=== PATIENT | male | born 1945 | race Caucasian/White ===

== ENCOUNTER → 2017-08-10 | Outpatient (CLI) | payer MEDICARE, OTHER | END | disposition home or self-care (01) | LOC: HKI 14:36 | DX: M16.11 Unilateral primary osteoarthritis, right hip (principal) | CPT/HCPCS: 73502 ==

== ENCOUNTER → 2017-08-20 | Outpatient (CLI) | payer MEDICARE, OTHER | END | disposition home or self-care (01) | LOC: HKI 14:07 | DX: M16.11 Unilateral primary osteoarthritis, right hip (principal) ==

== ENCOUNTER → 2017-09-13 | Outpatient (CLI) | payer MEDICARE, OTHER | END | disposition home or self-care (01) | LOC: HKI 13:25 | DX: Z01.818 Encounter for other preprocedural examination (principal) | CPT/HCPCS: 87081 ==

== ENCOUNTER 2017-09-23 08:49 | Inpatient (IN) | payer MEDICARE, OTHER ==
[2017-09-23] MEDS: LANSOPRAZOLE 30 MG CAP PO (06:30)
[2017-09-23] MEDS: ACETAMINOPHEN 1000MG/100ML IV 100 ML IVPB (06:30)
[2017-09-23] MEDS: ONDANSETRON 4 MG INJ IV ×4 (06:30→23:30)
[2017-09-23] MEDS: DEXAMETHASONE 4 MG/ML 1 ML INJ IV (06:30)
[~2017-09-23 08:49] MED LIST: EPHEDrine SULFATE 50 MG/5 ML SYG; ETOMIDATE 20 MG INJ; PROPOFOL 1000 MG INJ
[2017-09-23] MEDS ORDERED: GLYCOPYRROLATE 0.4 MG INJ (09:12)
[2017-09-23] MEDS ORDERED: CEFAZOLIN 1 GM INJ (09:12)
[2017-09-23] MEDS ORDERED: PROPOFOL 20 ML (09:12)
[2017-09-23] MEDS ORDERED: NEOSTIGMINE 3 MG/3 ML SYRINGE (09:12)
[2017-09-23] MEDS ORDERED: ROCURONIUM 50 MG INJ (09:12)
[2017-09-23] MEDS ORDERED: FENTAnyl 50 MCG/ML VIAL (09:13)
[2017-09-23] MEDS ORDERED: ONDANSETRON 4 MG INJ (09:13)
[2017-09-23] MEDS ORDERED: MIDAZOLAM 1 MG/ML 2 ML INJ (09:13)
[2017-09-23] MEDS ORDERED: DEXAMETHASONE 4 MG/ML 1 ML INJ (09:13)
[2017-09-23] MEDS ORDERED: BUPIVACAINE 0.75%/DEXT (SPINAL) 2 ML INJ (09:21)
[2017-09-23] MEDS: LACTATED RINGER'S 1,000 ML IV* (10:43)
[2017-09-23] MEDS: TRANEXAMIC ACID 1,000 MG in NS 100 ML PRE-OP X1 IVPB (11:00)
[2017-09-23] MEDS: CEFAZOLIN 2 GM/50 ML (PMX) 50 ML IVPB (11:04)
[2017-09-23] MEDS ORDERED: SENNA/DOCUSATE NA (8.6MG/50MG) TAB PO (11:30)
[2017-09-23] MEDS ORDERED: MAGNESIUM HYDROXIDE 30ML CUP PO (11:30)
[2017-09-23] MEDS ORDERED: oxyCODONE 5 MG TAB PO ×2 (11:30)
[2017-09-23] MEDS ORDERED: NA PHOSPHATE/BIPHOS 133 ML ENEMA PR (11:30)
[2017-09-23] MEDS ORDERED: NACL 0.9% 3 ML SYG IV (11:30)
[2017-09-23] MEDS ORDERED: BISACODYL 10 MG SUPP PR (11:30)
[2017-09-23] MEDS ORDERED: NALOXONE (0.4 MG/ML) INJ IV (11:30)
[2017-09-23] MEDS ORDERED: TRIMETHOBENZAMIDE 100 MG/ML VIAL IM (11:30)
[2017-09-23] MEDS ORDERED: DIPHENHYDRAMINE 50 MG INJ IV (11:30)
[2017-09-23] MEDS: TRANEXAMIC ACID 1,000 MG in NS 100 ML INTRA-OP X1 IVPB (12:30)
[2017-09-23] MEDS ORDERED: SUGAMMADEX SODIUM 200 MG/2 ML VIAL IV (12:52)
[2017-09-23] MEDS: CEFAZOLIN 1 GM/50 ML (PMX) 50 ML IVPB ×2 (13:23→20:43)
[2017-09-23] MEDS: DOCUSATE SODIUM 100 MG CAP PO (13:24)
[2017-09-23] MEDS: ASPIRIN (EC) 325 MG TAB PO (13:24)
[2017-09-23] MEDS: SOD CHLORIDE 0.9% 1,000 ML IV ×2 (14:58→23:38)
[2017-09-23] MEDS: GABAPENTIN 100 MG CAP PO (20:44)
[2017-09-24] MEDS: oxyCODONE 5 MG TAB PO
[2017-09-24] MEDS: SOD CHLORIDE 0.9% 1,000 ML IV ×2 (04:53→09:24)
[2017-09-24] MEDS: CEFAZOLIN 1 GM/50 ML (PMX) 50 ML IVPB (04:54)
[2017-09-24] MEDS: PANTOPRAZOLE (EC) 40 MG TAB PO (05:10)
[2017-09-24] MEDS: ONDANSETRON 4 MG INJ IV (05:30)
[2017-09-24 05:49] LABS: ADD MAN DIFF? NO
[2017-09-24 06:11] LABS: WHITE BLOOD COUNT 9.6 10^3/ul (4.8-10.8)
[2017-09-24 06:11] LABS: ABNORMAL IP MESSAGE 1; BASOPHILS % 0.1 % (0.0-2.0); HEMATOCRIT 34.4 % (42.0-52.0); HEMOGLOBIN 12.2 g/dl (14.0-18.0); LYMPHOCYTES # 0.3 10^3/ul (0.8-2.9); LYMPHOCYTES % 3.3 % (15.0-51.0); MEAN CORPUSCULAR HGB CONC 35.5 g/dl (32.0-37.0); MEAN CORPUSCULAR VOLUME 95.8 fl (82.0-101.0); MEAN PLATELET VOLUME 9.8 fl (7.4-10.4); MONOCYTE # 0.7 10^3/ul (0.3-0.9); MONOCYTES % 7.7 % (0.0-11.0); NEUTROPHIL # 8.5 10^3/ul (1.6-7.5); NEUTROPHILS % 88.5 % (39.0-77.0); PLATELET COUNT 186 10^3/UL (140-415); POSITIVE DIFF @See below; RED BLOOD COUNT 3.59 10^6/ul (4.70-6.10); RED CELL DISTRIBUTION WIDTH 12.5 % (11.5-14.5)
[2017-09-24 06:22] LABS: ANION GAP 16 (8-16); BLOOD UREA NITROGEN 19 mg/dl (7-20); CARBON DIOXIDE 25 mmol/L (21-31); CHLORIDE 100 mmol/L (97-110); CREATININE 1.07 mg/dl (0.61-1.24); GLUCOSE 148 mg/dl (70-220); POTASSIUM 4.1 mmol/L (3.5-5.1); SODIUM 137 mmol/L (135-144)
[2017-09-24] MEDS: BETHANECHOL 25 MG TAB PO (06:38)
[2017-09-24] MEDS ORDERED: NON-FORMULARY/PATIENT OWN MED (Losartan-Hydrochlorothiazide (Losartan-HCTZ) 1 TAB) PO (09:00)
[2017-09-24] MEDS: DOCUSATE SODIUM 100 MG CAP PO ×2 (09:17→20:41)
[2017-09-24] MEDS: FERROUS FUMARATE (SR) TAB PO ×2 (09:17→20:41)
[2017-09-24] MEDS: LOSARTAN 50 MG TAB PO (09:19)
[2017-09-24] MEDS: AMLODIPINE 5 MG TAB PO (09:20)
[2017-09-24] MEDS: HYDROCHLOROTHIAZIDE 12.5 MG CAP PO (09:20)
[2017-09-24] MEDS: ASPIRIN (EC) 325 MG TAB PO (09:20)
[2017-09-24] MEDS: GABAPENTIN 100 MG CAP PO ×2 (09:20→20:29)
[2017-09-25] MEDS: SOD CHLORIDE 0.9% 1,000 ML IV ×2 (01:12→13:08)
[2017-09-25 05:50] LABS: ADD MAN DIFF? NO
[2017-09-25 06:00] LABS: WHITE BLOOD COUNT 8.5 10^3/ul (4.8-10.8)
[2017-09-25 06:00] LABS: BASOPHILS % 0.4 % (0.0-2.0); EOSINOPHILS # 0.1 10^3/ul (0.0-0.5); EOSINOPHILS % 0.7 % (0.0-7.0); HEMATOCRIT 30.6 % (42.0-52.0); HEMOGLOBIN 10.7 g/dl (14.0-18.0); LYMPHOCYTES # 0.8 10^3/ul (0.8-2.9); LYMPHOCYTES % 9.1 % (15.0-51.0); MEAN CORPUSCULAR HEMOGLOBIN 33.8 pg (29.0-33.0); MEAN CORPUSCULAR VOLUME 96.5 fl (82.0-101.0); MEAN PLATELET VOLUME 9.8 fl (7.4-10.4); MONOCYTE # 0.9 10^3/ul (0.3-0.9); MONOCYTES % 10.5 % (0.0-11.0); NEUTROPHIL # 6.7 10^3/ul (1.6-7.5); NEUTROPHILS % 78.7 % (39.0-77.0); PLATELET COUNT 151 10^3/UL (140-415); RED BLOOD COUNT 3.17 10^6/ul (4.70-6.10); RED CELL DISTRIBUTION WIDTH 12.6 % (11.5-14.5)
[2017-09-25] MEDS: PANTOPRAZOLE (EC) 40 MG TAB PO (06:45)
[2017-09-25 07:07] LABS: ANION GAP 12 (8-16); BLOOD UREA NITROGEN 21 mg/dl (7-20); CALCIUM 8.6 mg/dl (8.4-10.2); CARBON DIOXIDE 25 mmol/L (21-31); CHLORIDE 100 mmol/L (97-110); GLUCOSE 106 mg/dl (70-220); POTASSIUM 3.4 mmol/L (3.5-5.1); SODIUM 134 mmol/L (135-144)
[2017-09-25] MEDS: GABAPENTIN 100 MG CAP PO (08:56)
[2017-09-25] MEDS: DOCUSATE SODIUM 100 MG CAP PO (08:57)
[2017-09-25] MEDS: LOSARTAN 50 MG TAB PO (08:57)
[2017-09-25] MEDS: AMLODIPINE 5 MG TAB PO (08:57)
[2017-09-25] MEDS: ASPIRIN (EC) 325 MG TAB PO (08:57)
[2017-09-25] MEDS: HYDROCHLOROTHIAZIDE 12.5 MG CAP PO (08:57)
[2017-09-25] MEDS: FERROUS FUMARATE (SR) TAB PO (08:58)
== END 2017-09-25 16:55 | disposition home health service (06) | DRG 470 ==
LOC: REC 08:49 → MS1 13:42
PROC: 0SR904A Replacement of Right Hip Joint with Ceramic on Polyethylene Synthetic Substitute, Uncemented, Open Approach (ICD-10-PCS; principal; 2017-09-23 10:52)
DX: M16.11 Unilateral primary osteoarthritis, right hip (principal); I10 Essential (primary) hypertension; E66.9 Obesity, unspecified; N40.1 Benign prostatic hyperplasia with lower urinary tract symptoms; R74.0 Nonspecific elevation of levels of transaminase and lactic acid dehydrogenase [LDH]; N39.43 Post-void dribbling; Z68.28 Body mass index [BMI] 28.0-28.9, adult
CPT/HCPCS: 72170; 80048; 85025; 86850; 86900; 86901; 87081; 87086; 88304; 97110; 97116; 97161; 97165; 97530

== ENCOUNTER → 2017-10-11 | Outpatient (CLI) | payer MEDICARE, OTHER | END | disposition home or self-care (01) | LOC: HKI 11:08 | DX: Z09 Encounter for follow-up examination after completed treatment for conditions other than malignant neoplasm (principal); Z96.641 Presence of right artificial hip joint; Z88.2 Allergy status to sulfonamides | CPT/HCPCS: 73502 ==

== ENCOUNTER → 2017-11-08 | Outpatient (CLI) | payer MEDICARE, OTHER | END | disposition home or self-care (01) | LOC: HKI 11:13 | DX: Z09 Encounter for follow-up examination after completed treatment for conditions other than malignant neoplasm (principal); Z96.641 Presence of right artificial hip joint; Z88.2 Allergy status to sulfonamides | CPT/HCPCS: 73502 ==

== ENCOUNTER → 2017-12-20 | Outpatient (CLI) | payer MEDICARE, OTHER | END | disposition home or self-care (01) | LOC: HKI 11:31 | DX: Z09 Encounter for follow-up examination after completed treatment for conditions other than malignant neoplasm (principal); Z96.641 Presence of right artificial hip joint | CPT/HCPCS: 73502 ==

== ENCOUNTER → 2018-04-11 | Outpatient (CLI) | payer MEDICARE, OTHER | END | disposition home or self-care (01) | LOC: HKI 11:22 | DX: Z47.1 Aftercare following joint replacement surgery (principal); Z96.641 Presence of right artificial hip joint | CPT/HCPCS: 73502 ==